=== PATIENT | male | born 1975 | race Two or more races ===

== ENCOUNTER 2017-06-12 13:22 | Emergency (ER) | payer MEDICAID ==
[~2017-06-12] VITALS: Ht 160 cm; Wt 59.0 kg
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
[2017-06-12 15:04] VITALS: BP 119/71
== END 2017-06-12 15:05 | disposition home or self-care (01) ==
LOC: ER 13:25
DX: M79.1 Myalgia (principal); I10 Essential (primary) hypertension
CPT/HCPCS: A4606; Z7610